=== PATIENT | male | born 1970 | race Asian ===

== ENCOUNTER 2017-10-14 11:51 | Outpatient (CLI) | payer OTHER ==
[~2017-10-14 11:51] MED LIST: METFORMIN ER1000 MG PO; Toujeo SC
== END 2017-10-14 19:41 | disposition home or self-care (01) ==
LOC: US 11:51
DX: N50.811 Right testicular pain (principal); N50.812 Left testicular pain

== ENCOUNTER 2018-12-15 02:25 | Emergency (ER) | payer OTHER ==
[~2018-12-15] VITALS: Ht 172.7 cm; Wt 88.9 kg
[2018-12-15 03:08] LABS: PLATELET COUNT 198 K/uL (142-355)
[2018-12-15 03:19] LABS: POTASSIUM 4.1 mmol/L (3.6-5.2); SODIUM 134 mmol/L (136-145)
[2018-12-15 04:48] VITALS: BP 142/93; TEMP 97.3
== END 2018-12-15 04:55 | disposition home or self-care (01) ==
LOC: ED 02:25
PROVIDERS: Family Medicine
DX: M79.622 Pain in left upper arm (principal); E11.65 Type 2 diabetes mellitus with hyperglycemia
CPT/HCPCS: 36415; 80053; 81000; 82550; 82962; 84484; 85027; 93005; 96372; 96374; 99284; J1815; J1885; J2270

== ENCOUNTER 2021-09-05 09:06 | Outpatient (CLI) | payer OTHER | END 2021-09-05 19:06 | disposition home or self-care (01) | LOC: US 09:06 | PROVIDERS: ATTEND Nurse Practitioner Family | DX: E03.9 Hypothyroidism, unspecified (principal); R94.31 Abnormal electrocardiogram [ECG] [EKG] ==